=== PATIENT | female | born 1960 | race Caucasian/White ===

== ENCOUNTER 2016-06-28 18:58 | Emergency (ER) | payer BC ==
[~2016-06-28] VITALS: Ht 157.5 cm; Wt 59.0 kg
[~2016-06-28 18:58] MED LIST: CALCIUM CARBON600 MG PO; CLARITIN 10MG T10 MG PO; FLONASE 50 MCG16 GM; HYZAAR 50-12.51 EACH PO; LEVOTHYROXIN0.112 MG PO; MECLIZINE 25MG25 MG PO; SIMVASTATIN40 MG PO; VENLAFAXINE HYD75 M1 PO
--- NOTE | 2016-06-28 20:21 | Urgent Treatment Center Report ---
History of Present Issue Date/Time Seen by Provider 06/28/161931 Visit Reason Pt arrived:Walked Presenting Problem:PT STATES FEELING BAD SUNDAY AND BEGAN HAVING DIARRHEA. STATES THEN SHE BEGAN VOMITING. STATES IT HAS WENT BACK AND FORTH. STATES OTC MEDICATION HAS NOT HELPED. STATES TRYING BRAT DIET WITH NO RELIEF. STATES STOMACH PAIN THAT SHE DESCRIBES BURNING. STATES HEADACHE BUT DENIES BODY ACHES. Location if Accident: Onset of symptoms date/time:06/24/16/ or onset unknown for:MEDICAL HX UNKNOWN Have you (or family members/close friends) recently traveled outside the [facility]? N If Yes, where/when: Have you had exposure to infectious disease within the past month? TB? Other? Specify: Here w/ spouse (who is driving) c/o N/V/D/abdominal pain. Diarrhea started 06/24/16, 4 days ago. N/V followed soon after on Sunday morning. Hasn' t stopped since then. Fever initially but not sure how high. No fever last 2 days. Vomiting after everything she eats or drinks despite trying BRAT diet for days, OTC antidiarrheals, left over medication for traveler's diarrhea (left country nearly one year ago), gatorade. Describes vomit as partially digested food and bile. No blood or anything similiar to coffee grounds. Diarrhea 4-6 times a day "at least". Watery at first but now more loose "like runny oatmeal". Yellow initially and now green. Abdominal pain ranges from 2-8/10. Bloated. Generalized fullness, aching, cramping throughout. Mouth getting dry. Worried about dehydration because not drinking much "because I just puke". Source patient Exam Limitations no limitations ALLERGIES Coded Allergies: Honey Bee (BEE,HONEY) (Severe, [id number]/THROAT 05/11/15) Home Medications Reported Medications LOSARTAN/HYDROCHLOROTHIAZIDE (Hyzaar 50-12.5 Tablet) 1 TAB PO QHS Levothyroxine Sodium 0.112 MG PO DAILY Calcium Carbonate 600 MG PO 3 X WK Simvastatin (Simvastatin 40MG Tab) 40 MG PO DAILY #90 VENLAFAXINE HCL (Venlafaxine HCl ER) 75 MG PO DAILY #90 Fluticasone Propionate (Flonase 50 Mcg Nasal [place]) 1 SPRAY NA BIDP PRN CONGESTION #48 History Medical History General CAD? No Angina: No MO: No Hypertension? Yes Hyperlipidemia? Yes CHF? No DVT? No PE? No COPD? No Asthma? No Anemia? No GERD? No Gastric ulcers? No GI Bleed? No Hernia? No Thyroid Problems? Yes Hypothyroidism? Yes CVA? No Seizures? No Diabetes? No Renal Insuffiency? No UTI? No Stones? No GB Disease: No Nephritic Syndrome? No Asplenia? No Hepatitis? No Sickle Cell Disease? No Arthritis? No Migraines? No Cataracts? No Glaucoma? No MRSA? No HIV? No TB? No Anxiety? No Depression? No Cancer? Yes Site: THYROID Immunization HX DT/Tetanus 1-4 YRS Flu THISFLUSEA Pneumonia NEVER Surgical Hx Previous Surgery?Y TYROIDECTOMY Family History Family HX Diabetes No CAD Yes Hypertension Yes Hyperlipidemia Yes Cancer Yes TB No Social History Smoking Hx Smoker: Never Smoker Tobacco: No Alcohol Alcohol: No Review of Systems All Other Systems Reviewed and Negative Constitutional see HPI, chills ENT denies: no symptoms reported, throat pain. Respiratory denies cough, denies shortness of breath Cardiovascular denies chest pain Gastrointestinal see HPI Genitourinary denies: dysuria, frequency. Skin denies rash Psychiatric/Neurological denies no symptoms reported Physical Exam Vital Signs Vital Signs Date Time Temp Pulse Resp B/P Pulse O2 O2 Flow FiO2 Ox Delivery Rate 06/28 1919 98.8 81 20 124/77 97 General Appearance mild distress, sitting in exam chair, slightly pale, cool rag on forehead Ear, Nose, Throat normal ENT inspection, mucous membranes getting dry, little moisture present, tongue slightly moist, coating starting on tongue Neck non-tender, supple Respiratory Status No: respiratory distress. Lung Sounds anterior: normal breath sounds. posterior: normal breath sounds. bilateral: normal breath sounds. Cardiovascular regular rate/rhythm, no murmur Gastrointestinal soft, no organomegaly, abnormal bowel sounds (very distant), distended, tenderness (throughout, worse LLQ), hypoactive, nearly absent Neurologic alert Skin warm/dry Medical Decision Making LABS/Meds/Orders Pt receiving controlled substance in ED? No Results/Orders Current Medication Orders Sig/Conner Start time Last Medication Dose Route Stop Time Status Admin Promethazine HCl 0 .STK-MED ONE 06/28 1953 DC .ROUTE Promethazine HCl 25 MG ONCE ONE 06/28 1944 DC 06/28 IM 06/28 Sodium Chloride 25 ML ONCE ONE 06/28 1944 DC 06/28 IV 06/28 Progress [facility] Progress Notes Date 06/28/16 Time 2020 Comment Pt feeling "some" better. Has had half a cup ice chips and hasn't vomited. Still refusing ER or further workup. Departure Departure Time of Disposition 2020 Disposition DC Home or Self Care(routine) Clinical Impression Primary Impression: Abdominal pain Secondary Impressions: Abnormal bowel sounds Diarrhea Qualifiers: Diarrhea type: unspecified type Qualified Code: R19.7 - Diarrhea, unspecified Nausea & vomiting Qualifiers: Vomiting type: unspecified Vomiting Intractability: intractable Qualified Code: R11.2 - Nausea with vomiting, unspecified Condition STABLE Referrals Vick Avilez MD (Family) first thing in morning Patient Instructions DI for Abdominal Pain-Adult, DI for Dehydration -- Adult, DI for Vomiting -- Adult Additional Instructions Patient needs further evaluation in the ER. Refusing to go to ER due to cost. Offered some workup here in [facility] including but not limited to labs and IVFs. Pt still refusing. "just give me a shot of phenergan and I will see Dr. Avilez in the morning." Rvwd risks and why this is not medically advised but pt still declines further workup due to time and cost. Wants to see PCP, Dr. Avilez, in AM. Return to ER tonight for any new or worsening symptoms Discharge Counseling Counseled pt/family regarding diagnosis, medications/RX, home care, follow up needs at 2020
--- NOTE | 2016-06-28 20:21 | Urgent Treatment Center Report ---
History of Present Issue Date/Time Seen by Provider 06/28/161931 Visit Reason Pt arrived:Walked Presenting Problem:PT STATES FEELING BAD SUNDAY AND BEGAN HAVING DIARRHEA. STATES THEN SHE BEGAN VOMITING. STATES IT HAS WENT BACK AND FORTH. STATES OTC MEDICATION HAS NOT HELPED. STATES TRYING BRAT DIET WITH NO RELIEF. STATES STOMACH PAIN THAT SHE DESCRIBES BURNING. STATES HEADACHE BUT DENIES BODY ACHES. Location if Accident: Onset of symptoms date/time:06/24/16/ or onset unknown for:MEDICAL HX UNKNOWN Have you (or family members/close friends) recently traveled outside the [facility]? N If Yes, where/when: Have you had exposure to infectious disease within the past month? TB? Other? Specify: Here w/ spouse (who is driving) c/o N/V/D/abdominal pain. Diarrhea started 06/24/16, 4 days ago. N/V followed soon after on Sunday morning. Hasn' t stopped since then. Fever initially but not sure how high. No fever last 2 days. Vomiting after everything she eats or drinks despite trying BRAT diet for days, OTC antidiarrheals, left over medication for traveler's diarrhea (left country nearly one year ago), gatorade. Describes vomit as partially digested food and bile. No blood or anything similiar to coffee grounds. Diarrhea 4-6 times a day "at least". Watery at first but now more loose "like runny oatmeal". Yellow initially and now green. Abdominal pain ranges from 2-8/10. Bloated. Generalized fullness, aching, cramping throughout. Mouth getting dry. Worried about dehydration because not drinking much "because I just puke". Source patient Exam Limitations no limitations ALLERGIES Coded Allergies: Honey Bee (BEE,HONEY) (Severe, [id number]/THROAT 05/11/15) Home Medications Reported Medications LOSARTAN/HYDROCHLOROTHIAZIDE (Hyzaar 50-12.5 Tablet) 1 TAB PO QHS Levothyroxine Sodium 0.112 MG PO DAILY Calcium Carbonate 600 MG PO 3 X WK Simvastatin (Simvastatin 40MG Tab) 40 MG PO DAILY #90 VENLAFAXINE HCL (Venlafaxine HCl ER) 75 MG PO DAILY #90 Fluticasone Propionate (Flonase 50 Mcg Nasal [place]) 1 SPRAY NA BIDP PRN CONGESTION #48 History Medical History General CAD? No Angina: No CA: No Hypertension? Yes Hyperlipidemia? Yes CHF? No DVT? No PE? No COPD? No Asthma? No Anemia? No GERD? No Gastric ulcers? No GI Bleed? No Hernia? No Thyroid Problems? Yes Hypothyroidism? Yes CVA? No Seizures? No Diabetes? No Renal Insuffiency? No UTI? No Stones? No GB Disease: No Nephritic Syndrome? No Asplenia? No Hepatitis? No Sickle Cell Disease? No Arthritis? No Migraines? No Cataracts? No Glaucoma? No MRSA? No HIV? No TB? No Anxiety? No Depression? No Cancer? Yes Site: THYROID Immunization HX DT/Tetanus 1-4 YRS Flu THISFLUSEA Pneumonia NEVER Surgical Hx Previous Surgery?Y TYROIDECTOMY Family History Family HX Diabetes No CAD Yes Hypertension Yes Hyperlipidemia Yes Cancer Yes TB No Social History Smoking Hx Smoker: Never Smoker Tobacco: No Alcohol Alcohol: No Review of Systems All Other Systems Reviewed and Negative Constitutional see HPI, chills ENT denies: no symptoms reported, throat pain. Respiratory denies cough, denies shortness of breath Cardiovascular denies chest pain Gastrointestinal see HPI Genitourinary denies: dysuria, frequency. Skin denies rash Psychiatric/Neurological denies no symptoms reported Physical Exam Vital Signs Vital Signs Date Time Temp Pulse Resp B/P Pulse O2 O2 Flow FiO2 Ox Delivery Rate 06/28 1919 98.8 81 20 124/77 97 General Appearance mild distress, sitting in exam chair, slightly pale, cool rag on forehead Ear, Nose, Throat normal ENT inspection, mucous membranes getting dry, little moisture present, tongue slightly moist, coating starting on tongue Neck non-tender, supple Respiratory Status No: respiratory distress. Lung Sounds anterior: normal breath sounds. posterior: normal breath sounds. bilateral: normal breath sounds. Cardiovascular regular rate/rhythm, no murmur Gastrointestinal soft, no organomegaly, abnormal bowel sounds (very distant), distended, tenderness (throughout, worse LLQ), hypoactive, nearly absent Neurologic alert Skin warm/dry Medical Decision Making LABS/Meds/Orders Pt receiving controlled substance in ED? No Results/Orders Current Medication Orders Sig/Conner Start time Last Medication Dose Route Stop Time Status Admin Promethazine HCl 0 .STK-MED ONE 06/28 1953 DC .ROUTE Promethazine HCl 25 MG ONCE ONE 06/28 1944 DC 06/28 IM 06/28 Sodium Chloride 25 ML ONCE ONE 06/28 1944 DC 06/28 IV 06/28 Progress [facility] Progress Notes Date 06/28/16 Time 2020 Comment Pt feeling "some" better. Has had half a cup ice chips and hasn't vomited. Still refusing ER or further workup. Departure Departure Time of Disposition 2020 Disposition DC Home or Self Care(routine) Clinical Impression Primary Impression: Abdominal pain Secondary Impressions: Abnormal bowel sounds Diarrhea Qualifiers: Diarrhea type: unspecified type Qualified Code: R19.7 - Diarrhea, unspecified Nausea & vomiting Qualifiers: Vomiting type: unspecified Vomiting Intractability: intractable Qualified Code: R11.2 - Nausea with vomiting, unspecified Condition STABLE Referrals Vick Avilez MD (Family) first thing in morning Patient Instructions DI for Abdominal Pain-Adult, DI for Dehydration -- Adult, DI for Vomiting -- Adult Additional Instructions Patient needs further evaluation in the ER. Refusing to go to ER due to cost. Offered some workup here in [facility] including but not limited to labs and IVFs. Pt still refusing. "just give me a shot of phenergan and I will see Dr. Avilez in the morning." Rvwd risks and why this is not medically advised but pt still declines further workup due to time and cost. Wants to see PCP, Dr. Avilez, in AM. Return to ER tonight for any new or worsening symptoms Discharge Counseling Counseled pt/family regarding diagnosis, medications/RX, home care, follow up needs at 2020
[2016-06-28 20:24] VITALS: BP 124/77
== END 2016-06-28 20:24 | disposition home or self-care (01) ==
LOC: UTC 18:58
DX: R10.32 Left lower quadrant pain (principal); I10 Essential (primary) hypertension; R19.7 Diarrhea, unspecified

== ENCOUNTER → 2016-06-30 | Outpatient (CLI) | payer BC ==
[2016-06-30 16:56] LABS: BUN 13 mg/dL (7-18)
[2016-06-30 16:59] LABS: GFR (ESTIMATED) 87 ML/MIN (59-)
== END ==
LOC: LAB 14:28
PROVIDERS: Nurse Practitioner Family
DX: I10 Essential (primary) hypertension (principal); E03.9 Hypothyroidism, unspecified; Z00.00 Encounter for general adult medical examination without abnormal findings